=== PATIENT | female | born 1950 | race Caucasian/White ===

== ENCOUNTER → 2017-09-23 | Outpatient (CLI) | payer BC, MEDICARE ==
--- NOTE | 2017-09-23 10:55 | Diagnostic Imaging Report ---
PROCEDURE: US Thyroid. TECHNIQUE: Multiple real-time grayscale images were obtained of the thyroid in various projections. INDICATION: Thyromegaly. FINDINGS: The right thyroid lobe measured 3.8 x 1.7 x 1.9 cm. It contains a 1.2 cm long axis mass in its lower pole with mixed solid and cystic elements. At its mid upper third, it contains a 1 cm diameter solid hypoechoic mass. The left thyroid lobe measured 4.6 x 2.6 x 2.3 cm. Its upper pole contains a vascularized solid mass with curvilinear rim calcifications, the lesion measuring 2.2 x 2.5 cm. A hypoechoic but solid nodule well-defined and its lower pole measures a long axis of 1 cm. IMPRESSION: Bilateral predominantly solid but partially mixed composition thyroid masses; the largest lesion in the left upper pole measured 2.5 x 2.2 cm with internal microcalcifications. If priors are not available to confirm its long-term stability, sonographic assisted lesional sampling of the dominant mass would be appropriate. Annual surveillance of the remaining nodules should suffice. Dictated by: Dictated on workstation # [id number]
--- NOTE | 2017-09-23 10:59 | Diagnostic Imaging Report ---
DEXA SPINE / ALLISON HIP TECHNIQUE: Dual-energy absorptiometry of the bilateral hips and lumbar spine was performed. INDICATION: 67-year-old postmenopausal female for osteoporosis screening. COMPARISON: None available. FINDINGS: The bone mineral density of the lumbar spine (L1-L4) is 1.011 g/cm2 which gives a T score of -1.4 and a Z score of -0.8. The bone mineral density of the right femoral neck is 0.944 g/cm2 which gives a T score of -0.7 and a Z score of 0.2. The bone mineral density of the left femoral neck is 0.899 g/cm2 which gives a T score of -1.0 and a Z score of -0.2. IMPRESSION: 1. Osteopenia (low bone mass). 2. Consider followup DEXA in 12-24 months to reassess bone mineral density. Dictated by: Dictated on workstation # [id number]
--- NOTE | 2017-09-23 16:35 | Diagnostic Imaging Report ---
EXAMINATION: Digital mammogram bilateral screening with CAD. INDICATION: Screening. COMPARISON: 08/21/2015 and 08/15/2014. PERSONAL HISTORY: At this time, there are no current complaints. FINDINGS: The fibroglandular tissue in both breasts is heterogeneously dense. This does limit the sensitivity of this exam. Overall, there does not appear to have been any significant change when compared to the prior study. No primary or secondary sign of malignancy is noted. IMPRESSION: There is no radiographic evidence for malignancy. ACR BI-RADS Category 2: Benign findings. Result letter will be mailed to the patient. Note: At least 10% of breast cancer is not imaged by mammography. Dictated by: Dictated on workstation # [id number]
== END ==
LOC: RAD 09:23
PROVIDERS: ATTEND Family Medicine
DX: Z12.31 Encounter for screening mammogram for malignant neoplasm of breast (principal); Z13.820 Encounter for screening for osteoporosis; M85.89 Other specified disorders of bone density and structure, multiple sites; E07.9 Disorder of thyroid, unspecified
CPT/HCPCS: 76536; 77067; 77080

== ENCOUNTER → 2017-11-11 | Outpatient (CLI) | payer BC, MEDICARE ==
[~2017-11-11] VITALS: Ht 170.2 cm; Wt 90.7 kg
[2017-11-11 11:12] VITALS: BP 129/84
[2017-11-11 11:25] VITALS: BP 128/80
--- NOTE | 2017-11-11 17:43 | Diagnostic Imaging Report ---
INDICATION: Left thyroid nodule. PROCEDURE: Sonographic guidance was provided for Dr. Thompson for a left thyroid nodule fine needle aspiration. Images demonstrate a left lobe thyroid nodule. Needle is positioned within the thyroid nodule. IMPRESSION: Sonographic guidance for Dr. Thompson for left thyroid FNA. Dictated by: Dictated on workstation # [id number]
== END ==
LOC: RAD 11:02
PROVIDERS: ATTEND Otolaryngology Otolaryngology/Facial Plastic Surgery
DX: E04.1 Nontoxic single thyroid nodule (principal)
CPT/HCPCS: 76942

== ENCOUNTER → 2018-05-23 | Outpatient (CLI) | payer BC, MEDICARE ==
--- NOTE | 2018-05-23 10:08 | Diagnostic Imaging Report ---
PROCEDURE: US Thyroid. TECHNIQUE: Multiple real-time grayscale images were obtained of the thyroid in various projections. INDICATION: Thyroid nodules. COMPARISON: 11/11/2017 and priors. FINDINGS: Right thyroid: The right thyroid lobe measures 4.2 x 1.8 x 1.6 cm. Vascularity appears normal. There is a hypoechoic circumscribed nodule in the posterior mid thyroid with internal vascularity which measures 0.9 x 1.0 x 1.0 cm in size. This appears unchanged. There is an isoechoic circumscribed nodule measuring 0.7 x 0.4 x 0.8 cm in size in the superior right thyroid. This was not seen on the prior exam. At the inferior right thyroid lobe, there is a hypoechoic circumscribed nodule measuring 0.8 x 0.8 x 1.0 cm in size. The isthmus appears normal in thickness. The left thyroid is mildly large measuring 5.3 x 2.5 x 2.5 cm. Vascularity appears normal. There is a capsulated isoechoic to mildly hypoechoic large nodule in the right thyroid lobe with punctate internal calcifications which measures 2.2 x 1.9 x 2.3 cm, unchanged since the prior study. This nodule was biopsied on 11/11/2017, and results were reportedly negative. There is also a peripherally calcified mildly heterogeneous nodule in the inferior left thyroid which measures 0.9 x 0.8 x 0.7 cm in size, which is predominantly isoechoic. IMPRESSION: 1. Multiple nodules in the thyroid bilaterally, with the largest measuring up to 2.3 cm in size. This is stable since the prior study, and was previously biopsied and reportedly benign. 2. Additional nodules in the bilateral thyroid are stable, with exception of a subcentimeter isoechoic nodule in the superior right thyroid which is not seen on the prior exam. Recommend continued sonographic followup. Dictated by: Dictated on workstation # [id number]
== END ==
LOC: RAD 08:34
PROVIDERS: ATTEND Otolaryngology Otolaryngology/Facial Plastic Surgery
DX: E04.2 Nontoxic multinodular goiter (principal)
CPT/HCPCS: 76536

== ENCOUNTER → 2019-02-10 | Outpatient (CLI) | payer BC, MEDICARE ==
--- NOTE | 2019-02-10 20:00 | Diagnostic Imaging Report ---
INDICATION: Routine screening. COMPARISON: Comparison is made with prior mammograms from 09/23/2017 and 08/21/2015. TECHNIQUE: 2-D and 3-D bilateral screening mammography was performed with Computer Aided Detection (CAD) system. FINDINGS: Both breasts are heterogeneously dense, limiting the sensitivity of mammography. The parenchymal pattern is stable. No mass or malignant appearing microcalcifications are seen. Axillae are unremarkable. IMPRESSION: No mammographic features suspicious for malignancy are identified. ACR BI-RADS Category 1: Negative. Result letter will be mailed to the patient. Note: At least 10% of breast cancer is not imaged by mammography. Dictated by: Dictated on workstation # [id number]
== END ==
LOC: RAD 07:36
PROVIDERS: ATTEND Family Medicine
DX: Z12.31 Encounter for screening mammogram for malignant neoplasm of breast (principal)
CPT/HCPCS: 77067

== ENCOUNTER → 2019-05-17 | Outpatient (CLI) | payer BC, MEDICARE ==
--- NOTE | 2019-05-17 17:42 | Diagnostic Imaging Report ---
INDICATION: Multinodular goiter. TECHNIQUE: Thyroid sonography performed in the routine fashion and compared to 05/23/2018. FINDINGS: The right thyroid lobe measured 4.9 x 1.9 x 2.1 cm. Left thyroid lobe measured 5.3 x 2.6 x 2.8 cm. Thyroid isthmus measured 3.6 mm. On the right side, there is a complex nodule inferiorly measuring 1.8 x 1.6 x 1.3 cm. There is a hypoechoic lesion posteriorly measuring 1.0 x 0.9 x 0.8 cm. There is an isoechoic lesion in the lateral portion of the gland measuring 9 x 6 x 5 mm. On the left side, there is a large slightly hypoechoic lesion laterally measuring 2.9 x 1.9 x 2.4 cm. There is a calcified lesion inferiorly measuring about 1.1 x 1.0 x 1.1 cm. IMPRESSION: 1. Bilateral thyroid nodules are present, as described above. The nodule in the inferior portion of the right thyroid lobe has increased compared to the prior study, now measuring 1.8 x 1.6 x 1.3 cm. This previously measured about 1.0 x 0.8 cm. Other lesions on the right side were stable. 2. On the left side, hypoechoic lesion which had measured 2.2 x 2.3 x 1.9 cm has increased to 2.9 x 2.4 x 1.9 cm. Smaller calcified lesion inferiorly has shown minimal change. Dictated by: Dictated on workstation # [id number]
== END ==
LOC: RAD 14:58
PROVIDERS: ATTEND Otolaryngology Otolaryngology/Facial Plastic Surgery
DX: E04.2 Nontoxic multinodular goiter (principal)
CPT/HCPCS: 76536

== ENCOUNTER → 2019-06-15 | Outpatient (CLI) | payer BC, MEDICARE ==
[~2019-06-15] VITALS: Ht 160 cm; Wt 95.5 kg
--- NOTE | 2019-06-15 19:53 | Diagnostic Imaging Report ---
INDICATION: Thyroid nodule. EXAMINATION: Ultrasound-guided aspiration, right thyroid. FINDINGS: The thyroid ultrasound exam of 05/17/2019 noted bilateral thyroid nodules. In the inferior pole of the right lobe there was a complex nodule measuring 1.8 x 1.6 x 1.3 cm. On the previous exam of 05/23/2018 this nodule measured 1.0 x 0.8 cm. PROCEDURE: Following aseptic preparation of the skin and administration of local anesthesia, the nodule in the inferior pole of the right lobe of the thyroid was biopsied using ultrasound guidance by Dr. Seven Thompson. Several passes were made. The patient tolerated the procedure well. IMPRESSION: There has been an ultrasound-guided biopsy of the nodule in the right lobe of the thyroid. A final pathology report is pending. Dictated by: Dictated on workstation # [id number]
== END ==
LOC: RAD 10:15
PROVIDERS: ATTEND Otolaryngology Otolaryngology/Facial Plastic Surgery
DX: E04.1 Nontoxic single thyroid nodule (principal)
CPT/HCPCS: 76942

== ENCOUNTER → 2020-07-18 | Outpatient (CLI) | payer BC, MEDICARE ==
--- NOTE | 2020-07-18 13:04 | Diagnostic Imaging Report ---
PROCEDURE: US Thyroid. TECHNIQUE: Multiple Real-time grayscale images were obtained of the thyroid in various projections. INDICATION: Thyroid nodules, followup. COMPARISON: Correlation is made with the prior thyroid ultrasound from 05/17/2019. FINDINGS: The right lobe of the thyroid measures 4.7 x 2.6 x 1.7 cm and the left lobe measures 5.7 x 2.6 x 2.5 cm. Bilateral thyroid nodules are again noted. The hypoechoic solid nodule in the upper pole of the right lobe is stable at 8 mm x 4 mm x 7 mm. The circumscribed hypoechoic nodule in the mid right lobe is stable at 0.9 x 1.0 x 0.8 cm. The complex mixed solid and cystic nodule in the lower pole of the right lobe is stable at 1.7 x 1.1 x 1.5 cm. A dominant solid nodule in the mid left lobe measures 2.7 x 2.3 x 1.9 cm and is stable. There appear to be several small microcalcifications present. A smaller nodule in the lower pole of the left lobe measures 0.9 x 0.8 x 0.9 cm, stable. This is partially calcified. IMPRESSION: Multinodular thyroid with multiple nodules present, stable when compared with the prior examination from 1 year earlier. Dictated by: Dictated on workstation # [id number]
== END ==
LOC: RAD 10:13
PROVIDERS: ATTEND Otolaryngology Otolaryngology/Facial Plastic Surgery
DX: E04.2 Nontoxic multinodular goiter (principal)
CPT/HCPCS: 76536

== ENCOUNTER → 2020-10-01 | Outpatient (CLI) | payer BC, MEDICARE ==
--- NOTE | 2020-10-01 14:45 | Diagnostic Imaging Report ---
INDICATION: Routine screening. COMPARISON: 02/10/2019 and 09/23/2017. TECHNIQUE: 2D and 3D bilateral screening mammography was performed with CAD. FINDINGS: Both breasts are heterogeneously dense, limiting the sensitivity of mammography. There are scattered benign calcifications in both breasts. No mass or malignant appearing microcalcifications are seen. The axillae are unremarkable. IMPRESSION: No mammographic features suspicious for malignancy are identified. ACR BI-RADS Category 2: Benign findings. Result letter will be mailed to the patient. Note: At least 10% of breast cancer is not imaged by mammography. Dictated by: Dictated on workstation # [id number]
== END ==
LOC: RAD 10:46
PROVIDERS: ATTEND Family Medicine
DX: Z12.31 Encounter for screening mammogram for malignant neoplasm of breast (principal)
CPT/HCPCS: 77063; 77067

== ENCOUNTER → 2022-09-29 | Outpatient (CLI) | payer MEDICARE, OTHER ==
--- NOTE | 2022-09-29 15:28 | Diagnostic Imaging Report ---
INDICATION: Routine screening. COMPARISON: 10/01/2020 and 02/10/2019. TECHNIQUE: 2D and 3D bilateral screening mammography was performed with CAD. FINDINGS: Both breasts are heterogeneously dense, limiting the sensitivity of mammography. There are benign parenchymal and vascular calcifications bilaterally. No mass or malignant-appearing microcalcifications are seen. The axillae are unremarkable. IMPRESSION: No mammographic features suspicious for malignancy are identified. ACR BI-RADS Category 2: Benign findings. Result letter will be mailed to the patient. Note: At least 10% of breast cancer is not imaged by mammography. Dictated by: Dictated on workstation # [id number]
== END ==
LOC: RAD 11:17
PROVIDERS: ATTEND Nurse Practitioner Family
DX: Z12.31 Encounter for screening mammogram for malignant neoplasm of breast (principal)
CPT/HCPCS: 77063; 77067

== ENCOUNTER → 2022-09-29 | Outpatient (CLI) | payer MEDICARE, OTHER ==
--- NOTE | 2022-09-29 19:39 | Diagnostic Imaging Report ---
PROCEDURE: US Thyroid. TECHNIQUE: Multiple real-time grayscale images were obtained of the thyroid in various projections. INDICATION: Multinodular goiter COMPARISON: 07/18/2020 FINDINGS: Right thyroid lobe: Size (cm): 3.8 x 2.1 x 1.8 Echotexture: Mildly heterogeneous Vascularity: Normal Nodules: In the superior right thyroid there is a isoechoic solid nodule measuring 7 mm which is stable since the prior study. In the mid right thyroid there is a hypoechoic solid 9 mm nodule which is stable since the prior study. In the inferior right thyroid there is a 2.1 cm mostly isoechoic but heterogeneous solid nodule which is increased from 1.7 cm previously. Isthmus: Size (cm): 0.3 Nodules: None Left thyroid lobe: Size (cm): 4.6 x 2.5 x 2.3 Echotexture: Normal Vascularity: Normal Nodules: In the superior left thyroid there is a 2.6 cm nodule which is isoechoic and solid and stable since the prior study. This does appear to have small punctate calcifications. This is stable since 2019. In the inferior left thyroid there is a hypoechoic solid 8 mm nodule with peripheral calcification. Impression: 1. A 2.1 cm TI-RADS 3 nodule in the inferior right thyroid qualifies for follow-up in one year, but has mildly increased in size since the prior study, and FNA could also be considered. 2. The 2.6 cm nodule in the left thyroid qualifies for FNA based on TI-RADS criteria, however, this appears stable in size since 2019. Dictated by: Dictated on workstation # [id number]
== END ==
LOC: RAD 12:00
PROVIDERS: ATTEND Otolaryngology Otolaryngology/Facial Plastic Surgery
DX: E04.2 Nontoxic multinodular goiter (principal)
CPT/HCPCS: 76536